=== PATIENT | female | born 1980 | race American Indian/Alaskan Native ===

== ENCOUNTER 2017-02-19 06:40 | Day surgery (SDC) | payer MEDICAID ==
[~2017-02-19 06:40] MED LIST: Dexamethasone 4 MG/ML SDV ONE; Lidocaine 1% 4 ML ONE; Midazolam 1 MG/ML 2 ML SDV ONE; Ondansetron 4 MG/2 ML SDV ONE; Propofol 200 MG/20 ML SDV ONE; ceFAZolin 1 GM Vial ONE; fentaNYL 250 MCG/5 ML SDV ONE
--- NOTE | 2017-02-19 06:45 | PCM.PREANE ---
Preanesthetic Assessment - Procedure Proposed Procedure: Right knee video arthroscopy with partial lateral menisectomy - Anesthesia/Transfusion/Family Hx Anesthesia History: Prior Anesthesia Without Reaction Family History of Anesthesia Reaction: No Transfusion History: No Prior Transfusion(s) Intubation History: Unknown - Review of Systems General: No Symptoms Pulmonary: Shortness of Breath, Other (Current everyday smoker) Cardiovascular: Dyspnea on Exertion, Other (Hypertension) Gastrointestinal: No symptoms (q ) Neurological: No Symptoms Other: Reports: Easy Bruising (Anemia, polymorphic light eruption (skin)), Depression - Physical Assessment NPO Status Date: 02/18/17 NPO Status Time: 21:00 Pulse: 70 O2 Sat by Pulse Oximetry: 97 Respiratory Rate: 16 Blood Pressure: 145/96 Temperature: 36.0 C Height: 1.55 m Weight: 72.575 kg ASA Class: 2 Mental Status: Alert & Oriented x3 Airway Class: Mallampati = 1 Dentition: Reports: Missing Tooth/Teeth (Both upper and lower) Thyro-Mental Finger Breadths: 3 Mouth Opening Finger Breadths: 3 ROM/Head Extension: Full Lungs: Clear to auscultation, Normal respiratory effort Cardiovascular: Regular Rate, Regular Rhythm, No Murmurs - Lab Values: Laboratory Last Values MRSA (PCR) Negative 02/17/17 16:24 - Allergies Allergies/Adverse Reactions: Allergies Allergy/AdvReac Type Severity Reaction Status Date / Time No Known Allergies Allergy Verified 02/18/17 15:49 - Blood Blood Available: No Product(s) Available: None - Acknowledgements Anesthesia Type Planned: General Anesthesia Pt an Appropriate Candidate for the Planned Anesthesia: Yes Alternatives and Risks of Anesthesia Discussed w Pt/Guardian: Yes Pt/Guardian Understands and Agrees with Anesthesia Plan: Yes PreAnesthesia Questionnaire Cardiovascular History: Reports: Hypertension, SOB on Exertion Respiratory History: 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: Musculoskeletal History: Reports: None Neurological History: Reports: None Psychiatric History: Reports: Depression, Suicidal Ideation Endocrine/Metabolic History: Reports: None Hematologic History: Reports: Anemia, Iron Deficiency Immunologic History: Reports: None Oncologic (Cancer) History: Reports: None Dermatologic History: Reports: Other (See Below) Other Dermatologic History: polymorpic light eruption - Past Surgical History Head Surgeries/Procedures: Reports: None HEENT Surgical History: Reports: Adenoidectomy, Tonsillectomy GI Surgical History: Reports: Appendectomy, Hernia Repair/Other Other GI Surgeries/Procedures: SMALL HEALED INCISION ABOVE UMBILICUS. PT STATES IS STILL VERY SORE Female Surgical History: Reports: Section, Tubal Ligation - SUBSTANCE USE Smoking Status *Q: Current Every Day Smoker Tobacco Use Within Last Twelve Months: Cigarettes Second Hand Smoke Exposure: Yes Days Per Week of Alcohol Use: 0 Recreational Drug Use History: Yes Recreational Drug Type: Reports: Other (see below) - HOME MEDS Home Medications: Home Meds Sertraline [Zoloft] 100 mg PO BEDTIME 01/02/15 [History] Buprenorphine HCl/Naloxone HCl [Buprenorphin-Naloxon 8-2 mg Sl] 1 tab SL BID [History] Fluocinonide [Lidex 0.05% Crm] 1 applic TOP BID 02/18/17 [History] Hydrocortisone [Hydrocortisone 2.5% Crm] 1 applic TOP BID 02/18/17 [History] Lisinopril 20 mg PO DAILY 02/18/17 [History] Triamcinolone Acetonide [Triamcinolone Acetonide 0.1% Crm] 1 applic TOP BID PRN 02/18/17 [History] - CURRENT (IN HOUSE) MEDS Current Meds: Current Medications Lactated Ringer's (Ringers, Lactated) 1,000 mls @ 125 mls/hr IV ASDIRECTED JAMES Lidocaine/Sodium Bicarbonate (Buffered Lidocaine 1% In Ns 8.4%) 0.25 ml IV ONETIME PRN PRN Reason: Prior to IV Start Sodium Chloride (Saline Flush) 10 ml FLUSH ASDIRECTED PRN PRN Reason: Keep Vein Open Discontinued Medications Cefazolin Sodium (Ancef) Confirm Administered Dose 2 gm .ROUTE .STK-MED ONE Stop: 02/19/17 06:26 Dexamethasone (Dexamethasone) Confirm Administered Dose 4 mg .ROUTE .STK-MED ONE Stop: 02/19/17 06:26 Fentanyl (Sublimaze) Confirm Administered Dose 250 mcg .ROUTE .STK-MED ONE Stop: 02/19/17 06:25 Lidocaine HCl (Xylocaine-Mpf 1%) Confirm Administered Dose 4 mls @ as directed .ROUTE .STK-MED ONE Stop: 02/19/17 06:26 Midazolam HCl (Versed 1 Mg/Ml) Confirm Administered Dose 2 mg .ROUTE .STK-MED ONE Stop: 02/19/17 06:25 Ondansetron HCl (Zofran) Confirm Administered Dose 4 mg .ROUTE .STK-MED ONE Stop: 02/19/17 06:26 Propofol (Diprivan 20 Ml) Confirm Administered Dose 200 mg .ROUTE .STK-MED ONE Stop: 02/19/17 06:25
[2017-02-19] MEDS ORDERED: Bupivacaine 0.25% 30 ML SDV ONE (06:52)
[2017-02-19] MEDS ORDERED: Lidocaine 1%/Sod Bicarbonate in NS 8.4% 1 ML Syringe IV PRN (07:00)
[2017-02-19] MEDS ORDERED: Sodium Chloride 0.9% 10 ML Syringe FLUSH PRN (07:00)
[2017-02-19] MEDS ORDERED: Lactated Ringers 1,000 ML IV SCH (07:00)
[2017-02-19] MEDS ORDERED: Ketamine 500 mg/10 ML MDV ONE (07:56)
[2017-02-19] MEDS ORDERED: Ketorolac 30 MG/ML SDV ONE (08:00)
[2017-02-19] MEDS: EPINEPHrine 1:1000 1 MG/ML 30 ML MDV ONE ×2 (08:09→08:15)
[2017-02-19] MEDS ORDERED: Triamcinolone Acetonide 40 MG/ML 1 ML MDV ONE (08:17)
[2017-02-19] MEDS ORDERED: Ondansetron 4 MG/2 ML SDV IVPUSH PRN (08:55)
[2017-02-19] MEDS ORDERED: Meperidine PF 50 MG/ML Syringe IM PRN (08:55)
[2017-02-19] MEDS ORDERED: Meperidine PF 50 MG/ML Syringe IVPUSH PRN (08:55)
--- NOTE | 2017-02-19 08:58 | PCM.POSTAN ---
POST ANESTHESIA ASSESSMENT - MENTAL STATUS Mental Status: somnolent (Able to orient) - VITAL SIGNS Pulse Rate: 74 SaO2: 97 Resp Rate: 13 Blood Pressure: 160/102 Temperature: 36.2 C - RESPIRATORY Respiratory Status: respiratory rate WNL, airway patent, O2 saturation stable - CARDIOVASCULAR CV Status: pulse rate WNL, blood pressure stable - GASTROINTESTINAL GI Status: no symptoms - PAIN Pain Score: 0 - POST OP HYDRATION Hydration Status: adequate & stable
[2017-02-19] MEDS: fentaNYL 100 MCG/2 ML SDV IVPUSH PRN ×3 (09:02→09:55)
[2017-02-19] MEDS: HYDROmorphone 0.5 MG/0.5 ML Syringe IVPUSH PRN ×2 (09:05→09:32)
[2017-02-19] MEDS ORDERED: hydrALAZINE 20 MG/ML SDV IVPUSH ONE (09:32)
[2017-02-19 10:56] VITALS: BP 124/71
--- NOTE | 2017-02-26 22:49 | PCM.OPNOTE ---
- General Post-Op/Procedure Note Date of Surgery/Procedure: 02/19/17 Operative Procedure(s): right knee video arthroscopy with partial lateral meniscectomy and later femoral condyle chondroplasty Pre Op Diagnosis: right knee lateral meniscus tear Post-Op Diagnosis: Same Anesthesia Technique: General LMA, Local Primary Surgeon: Wili Khoury Anesthesia Provider: Gonzales Hawkins Primary Montessori Teacher: Lili Gillespie Primary Montessori Teacher: Bharat Patricio EBL in mLs: 5 Complications: None Condition: Good
--- NOTE | 2017-02-26 23:34 | OR ---
DATE OF OPERATION: 02/19/2017 SURGEON: Wili Khoury MD OPERATION PERFORMED: Right knee video arthroscopy with partial lateral meniscectomy and lateral femoral condyle chondroplasty. PREOPERATIVE DIAGNOSIS: Right knee lateral meniscus tear. POSTOPERATIVE DIAGNOSIS: 1. 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 2. 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 ANESTHESIA: General LMA with local. ANESTHESIA PROVIDER: Gonzales Hawkins. ASSISTANTS: Lili Gillespie PA-C and Bharat Patricio MD. ESTIMATED BLOOD LOSS: 5. COMPLICATIONS: None. CONDITION: Stable. DESCRIPTION OF PROCEDURE: The patient was identified in the preop holding area. Proper site was marked and identified by the surgeon. The patient was taken back to the operating theater where after adequate anesthesia, the patient was placed supine. The left lower extremity was placed in a well leg dejesus. Right lower extremity was placed in a C-clamp dejesus after a nonsterile tourniquet was applied. Right lower extremity was then sterilely prepped and draped in the usual sterile fashion. OR time-out was performed. The patient received 2 g IV Ancef. At this time, the right lower extremity was exsanguinated and tourniquet was insufflated at 250 mmHg. Standard anterior lateral portal incision was made. The scope trocar was introduced. The patella showed no signs of chondromalacia over the trochlea. There were no loose or foreign bodies in the lateral gutter. At this time, attention was turned to medial compartment. Spinal needle was used for creation of anterior medial portal and cursory examination of the medial compartment showed no signs of chondromalacia. No meniscus tear. The ACL was found to be intact in the notch. Attention was turned to the lateral compartment. There was noted to be a diffuse tear of the lateral meniscus starting anteriorly working all the way back to the posterior third of the lateral meniscus. At this time, there was also noted to be a large 1.5 cm x 8 cm defect on the lateral femoral condyle with significant cartilage fraying and loose chondral pieces. At this time, a chondroplasty was performed of the lateral femoral condyle to get it back to a smooth border with no loose chondral flaps. A partial lateral meniscectomy was then carried out all the way from the anterior portion all the way to the posterior third and was found to be attached at this point, and a probe was used to make sure it was stable. At this time, excess saline was drained from the knee. A steroid injection was given to the patient. During this procedure, 3-0 nylon simple suture was used for closure of the skin. The patient had a sterile soft dressing applied and was sent to PACU in stable condition. MMODAL /[id number]
== END 2017-02-19 11:10 | disposition home or self-care (01) ==
LOC: JD.SDS 06:40
PROVIDERS: ATTEND Orthopaedic Surgery
PROC: 0SBD4ZZ Excision of Left Knee Joint, Percutaneous Endoscopic Approach (ICD-10-PCS; principal; 2017-02-19)
PROC: 0S5 Lower Joints, Destruction (ICD-10-PCS; 2017-02-19)
DX: S83.282A Other tear of lateral meniscus, current injury, left knee, initial encounter (principal); X58.XXXA Exposure to other specified factors, initial encounter; M94.262 Chondromalacia, left knee; I10 Essential (primary) hypertension; F17.200 Nicotine dependence, unspecified, uncomplicated; D50.9 Iron deficiency anemia, unspecified
CPT/HCPCS: 29881; 29999; 87641; J0171; J0360; J0690; J1100; J1170; J1885; J2250; J2405; J3010; J3301; J7120; 01400; J2704; J3490

== ENCOUNTER 2018-12-14 09:20 | Emergency (ER) | payer MEDICAID ==
[2018-12-14 09:30] VITALS: BP 148/94
[2018-12-14] MEDS ORDERED: Alum Hydrox/Mag Hydrox/Simeth 30 ML, Lidocaine 2% 15 ML PO STA ×2 (09:34)
--- NOTE | 2018-12-14 09:53 | EDM.PDOC ---
ED HPI GENERAL MEDICAL PROBLEM - General Chief Complaint: Gastrointestinal Problem Stated Complaint: HEARTBURN Time Seen by Provider: 12/14/18 09:34 Source of Information: Reports: Patient, RN Notes Reviewed History Limitations: Reports: No Limitations - History of Present Illness INITIAL COMMENTS - FREE TEXT/NARRATIVE: The patient states she has been experiencing heartburn since Thursday, 2018. She describes a bubble sensation in her epigastrium and a burning sensation behind her sternum, extending up to the mid chest, that is constant. The patient states that she has a history of intermittent GERD, formerly treated , but not for several years. She has not taken any [id number] treatments, including antacids, NSAIDs, or PPIs, to try to treat her current symptoms. The patient states that both of her knees were injected with steroids by Dr. Khoury this past 12/10/2018. She states that she is not on systemic steroids. The patient's PCP is Lida Wilkerson. Her Psychiatrist is Dr. Kayleigh Santos, in [place]. heartburn Pain Score (Numeric/FACES): 5 - Related Data Allergies Allergy/AdvReac Type Severity Reaction Status Date / Time No Known Allergies Allergy Verified 02/19/17 07:16 Home Meds: Home Meds Sertraline [Zoloft] 100 mg PO BEDTIME 01/02/15 [History] Buprenorphine HCl/Naloxone HCl [Buprenorphin-Naloxon 8-2 mg Sl] 1 tab SL BID [History] Fluocinonide [Lidex 0.05% Crm] 1 applic TOP BID 02/18/17 [History] Hydrocortisone [Hydrocortisone 2.5% Crm] 1 applic TOP BID 02/18/17 [History] Lisinopril 20 mg PO DAILY 02/18/17 [History] Triamcinolone Acetonide [Triamcinolone Acetonide 0.1% Crm] 1 applic TOP BID PRN 02/18/17 [History] Past Medical History Cardiovascular History: Reports: Hypertension Gastrointestinal History: Reports: GERD (untreated) 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: Psychiatric History: Reports: Addiction (methamphetamine, opioids), Depression, Suicidal Ideation Endocrine/Metabolic History: Reports: Obesity/BMI 30+ Hematologic History: Reports: Anemia, Iron Deficiency - Past Surgical History HEENT Surgical History: Reports: Adenoidectomy, Tonsillectomy GI Surgical History: Reports: Appendectomy, Hernia, Abdominal (ventral) Female Surgical History: Reports: Section (x 3), Tubal Ligation Musculoskeletal Surgical History: Reports: Arthroscopic Knee (right) Social & Family History - Family History Family Medical History: Noncontributory - Tobacco Use Smoking Status *Q: Current Every Day Smoker Years of Tobacco use: 21 Packs/Tins Daily: 0.5 Packs/Tins Daily Comment: Down from 1 ppd - Caffeine Use Caffeine Use: Reports: Coffee - Alcohol Use Alcohol Use History: No - Recreational Drug Use Recreational Drug Use: Yes Drug Use in Last 12 Months: No Recreational Drug Type: Reports: Methamphetamine (last smoked 2010), Other (see below) (Oxycodone, hydrocodone - last took 2010) - Living Situation & Occupation Living situation: Reports: (), with Family (2 daughters) Occupation: Unemployed ED ROS GENERAL - Review of Systems Review Of Systems: ROS reveals no pertinent complaints other than HPI. ED EXAM, GI/ABD - Physical Exam Exam: See Below Exam Limited By: No Limitations General Appearance: Alert, WD/WN, No Apparent Distress Eyes: Bilateral: Normal Appearance, EOMI Ears: Normal External Exam, Hearing Grossly Normal Nose: Normal Inspection Throat/Mouth: Normal Inspection, Normal Lips, Normal Voice, No Airway Compromise Head: Atraumatic, Normocephalic Neck: Normal Inspection, Full Range of Motion Respiratory/Chest: No Respiratory Distress, Lungs Clear, Normal Breath Sounds, No Accessory Muscle Use, Chest Non-Tender (sternal) Cardiovascular: Normal Peripheral Pulses, Regular Rate, Rhythm, No Gallop, No JVD, No Murmur, No Rub GI/Abdominal Exam: Normal Bowel Sounds, Soft, Non-Tender (including epigastrium) , No Organomegaly, No Distention, No Abnormal Bruit, No Mass, Other (Obese) (Female) Exam: Deferred Rectal (Female) Exam: Deferred Back Exam: Normal Inspection, Full Range of Motion, NT Extremities: Normal Inspection, Normal Range of Motion, Normal Capillary Refill Neurological: Alert, Oriented, Normal Cognition, No Motor/Sensory Deficits Psychiatric: Normal Affect Skin Exam: Warm, Dry, Intact, Normal Color, No Rash Course - Vital Signs Last Recorded V/S: Last Vital Signs Temp 37.1 C 12/14/18 09:26 Pulse 67 04/09/19 09:26 Resp 18 12/14/18 09:26 BP 148/94 H 12/14/18 09:26 Pulse Ox 98 12/14/18 09:26 - Orders/Labs/Meds Meds: Medications Discontinued Medications Generic Name Dose Route Start Last Admin Trade Name Evans PRN Reason Stop Dose Admin Al Hydroxide/Mg Hydroxide 30 0 ml 12/14/18 09:34 12/14/18 10:03 ml/ Lidocaine HCl 15 ml PO 12/14/18 09:35 45 ml ONETIME STA Administration Famotidine 20 mg 12/14/18 10:29 12/14/18 10:32 Pepcid PO 12/14/18 10:30 20 mg ONETIME ONE Administration - Re-Assessments/Exams Free Text/Narrative Re-Assessment/Exam: 12/14/18 09:53 The patient appears to be suffering from GERD. I have ordered a GI cocktail to see if that makes any difference. 12/14/18 10:30 The patient reported decreased burning following a GI cocktail. This is consistent with GERD. I am recommending that the patient start taking a H2 tito twice a day, and if that is effective, to decrease it to once a day. If taking a H2 tito twice a day is not effective, the patient may need to switch to a PPI, however, under those circumstances, I would recommend that the patient undergo an EGD. Departure - Departure Time of Disposition: 10:31 Disposition: Home, Self-Care 01 Condition: Good Clinical Impression: GERD (gastroesophageal reflux disease) - Discharge Information *PRESCRIPTION DRUG MONITORING PROGRAM REVIEWED*: Not Applicable *COPY OF PRESCRIPTION DRUG MONITORING REPORT IN PATIENT RADHA: Not Applicable Instructions: Food Choices for Gastroesophageal Reflux Disease, Adult Referrals: Lida Wilkerson PA-C [Primary Care Provider] - Forms: ED Department Discharge Additional Instructions: You were seen in the emergency room for a bubble-like sensation in your upper abdomen and a burning sensation in your mid chest. You had some relief following a GI cocktail, strongly indicating that your symptoms are due to GERD (acid reflux). You have been started on the antacid medicine famotidine (Pepcid). Famotidine is available [id number], and generics are just as good as the brand name. We recommend that you take one tablet approximately every 12 hours. If twice daily famotidine is effective in treating your heartburn, we recommend that you decreased your dosage to one tablet once a day. If that remains effective, we recommend that you stay on it. If you again develop heartburn while on once daily famotidine, go back to one tablet twice a day. If twice daily famotidine is ineffective in treating your heartburn symptoms, you may need to be placed on a stronger medication, however, under those circumstances we would recommend that you undergo an EGD (scope of your stomach) . Follow-up with your PCP, Lida Wilkerson, to make those arrangements. If any other problems, please do not hesitate to return to the ER.
[2018-12-14] MEDS ORDERED: Famotidine 20 MG Tab PO ONE (10:29)
== END 2018-12-14 10:42 | disposition home or self-care (01) ==
LOC: JD.ED 09:20
DX: K21.9 Gastro-esophageal reflux disease without esophagitis (principal); I10 Essential (primary) hypertension; F17.210 Nicotine dependence, cigarettes, uncomplicated; Z79.899 Other long term (current) drug therapy
CPT/HCPCS: 99283; A9270

== ENCOUNTER 2023-03-31 12:09 | Emergency (ER) | payer MEDICAID ==
[2023-03-31 12:20] VITALS: PULSE 72
[2023-03-31] MEDS ORDERED: Aspirin 81 MG Tab.Chew PO ONE (12:39)
[2023-03-31] MEDS ORDERED: Sodium Chloride 0.9% 10 ML Syringe FLUSH PRN (12:39)
[2023-03-31 12:55] LABS: BASOPHILS ABSOLUTE AUTO 0.01 K/mm3 (0.01-0.08); BASOPHILS PERCENT AUTO 0.2 % (0.1-1.2); EOSINOPHILS ABSOLUTE AUTO 0.18 K/mm3 (0.04-0.36); HEMATOCRIT 40.8 % (34.1-44.9); IMMATURE GRAN ABSOLUTE AUTO 0.01 K/mm3 (0.00-0.10); IMMATURE GRAN PERCENT AUTO 0.2 % (<=1.0); LYMPHOCYTES ABSOLUTE AUTO 1.18 K/mm3 (1.18-3.74); MEAN CORPUSCULAR HGB CONC 33.3 g/dl (32.2-35.5); MEAN PLATELET VOLUME 9.4 fl (9.4-12.3); MONOCYTES ABSOLUTE AUTO 0.52 K/mm3 (0.24-0.36); MONOCYTES PERCENT AUTO 8.8 % (4.7-12.5); NEUTROPHILS ABSOLUTE AUTO 4.01 K/mm3 (1.56-6.13); NEUTROPHILS PERCENT AUTO 67.8 % (34.0-71.1); PLATELET COUNT,PLT 320 K/mm3 (182-369); RED BLOOD CELL COUNT 4.85 M/mm3 (3.98-5.22); WHITE BLOOD CELL COUNT,WBC 5.91 K/mm3 (3.98-10.04)
[2023-03-31 12:57] LABS: HEMOGLOBIN 13.6 gm/dl (11.2-15.7); MEAN CORPUSCULAR VOLUME 84.1 fl (79.4-94.8)
[2023-03-31 13:31] LABS: A/G RATIO 0.9 (1-2); ALBUMIN 3.5 g/dl (3.4-5.0); ANION GAP 9.8 (5-15); BILIRUBIN TOTAL 0.3 mg/dL (0.2-1.0); BUN/CREATININE RATIO 17.1 (14-18); CALCIUM 9.2 mg/dL (8.5-10.1); CREATININE 0.7 mg/dL (0.55-1.02); EST CRCL DRUG DOSING (CG) 78.2 mL/min; POTASSIUM,K 3.8 mEq/L (3.5-5.1); PROTEIN TOTAL,TP 7.4 g/dl (6.4-8.2)
[2023-03-31 18:10] VITALS: BP 143/103
== END 2023-03-31 15:55 | disposition home or self-care (01) ==
LOC: JD.ED 12:09
DX: R07.89 Other chest pain (principal); I10 Essential (primary) hypertension; F17.210 Nicotine dependence, cigarettes, uncomplicated; E66.9 Obesity, unspecified; Z68.29 Body mass index [BMI] 29.0-29.9, adult; Z86.16 Personal history of COVID-19
CPT/HCPCS: 36415; 71045; 80053; 84484; 85025; 85379; 93005; 99285; A9270; 93010; 99284

== ENCOUNTER 2023-12-31 20:33 | Emergency (ER) | payer MEDICAID ==
[2023-12-31] MEDS: Sodium Chloride 0.9% 10 ML Syringe FLUSH PRN (21:03)
[2023-12-31 21:05] LABS: BASOPHILS PERCENT AUTO 0.3 % (0.0-1.0); EOSINOPHILS ABSOLUTE AUTO 0.3 K/mm3 (0.0-0.4); EOSINOPHILS PERCENT AUTO 2.9 % (0.0-6.0); HEMATOCRIT 35.8 % (37.0-47.0); HEMOGLOBIN 11.9 gm/dl (12.0-16.0); IMMATURE GRAN ABSOLUTE AUTO 0.02 K/mm3 (0.00-0.05); IMMATURE GRAN PERCENT AUTO 0.2 % (0.0-0.4); LYMPHOCYTES ABSOLUTE AUTO 2.3 K/mm3 (1.0-4.8); LYMPHOCYTES PERCENT AUTO 26.4 % (24.0-44.0); MEAN CORPUSCULAR HEMOGLOBIN 26.9 pg (28.0-32.0); MEAN CORPUSCULAR HGB CONC 33.2 g/dl (32.0-36.0); MEAN PLATELET VOLUME 8.8 fl (9.4-12.3); MONOCYTES ABSOLUTE AUTO 0.6 K/mm3 (0.0-0.8); MONOCYTES PERCENT AUTO 7.4 % (0.0-8.0); NEUTROPHILS ABSOLUTE AUTO 5.4 K/mm3 (1.8-7.7); NEUTROPHILS PERCENT AUTO 62.8 % (41.0-71.0); PLATELET COUNT,PLT 337 K/mm3 (150-400); RED BLOOD CELL COUNT 4.42 M/mm3 (4.10-5.30); WHITE BLOOD CELL COUNT,WBC 8.65 K/mm3 (3.9-11.3)
[2023-12-31 21:23] LABS: PROTHROMBIN TIME 9.8 SECONDS (9.7-12.0)
[2023-12-31 21:24] LABS: D-DIMER QUANTITATIVE 0.32 mg/L (0.19-0.50)
[2023-12-31 21:25] LABS: INR < 0.93; PTT,PARTIAL THROMBOPLSTIN TIME 26.5 SECONDS (21.7-31.4)
[2023-12-31 21:33] LABS: ALBUMIN 3.5 g/dl (3.4-5.0); ANION GAP 8.8 (5-15); BILIRUBIN TOTAL 0.3 mg/dL (0.2-1.0); BUN/CREATININE RATIO 11.3 (14-18); CALCIUM 8.9 mg/dL (8.5-10.1); CREATININE 0.8 mg/dL (0.55-1.02); EST CRCL DRUG DOSING (CG) 67.72 mL/min; MAGNESIUM 1.9 mg/dL (1.8-2.4); POTASSIUM,K 3.8 mEq/L (3.5-5.1); PROTEIN TOTAL,TP 7.1 g/dl (6.4-8.2)
[2023-12-31] MEDS: hydrALAZINE 20 MG/ML SDV IVPUSH ONE (21:37)
[2023-12-31] MEDS: amLODIPine 5 MG Tab PO ONE (22:23)
[2023-12-31 22:39] VITALS: PULSE 77
[2024-01-01 00:37] VITALS: BP 185/108
[2024-01-01] MEDS ORDERED: amLODIPine 10 MG Tab PO SCH (21:00)
== END 2024-01-01 00:27 | disposition home or self-care (01) ==
LOC: JD.ED 20:33
DX: I20.9 Angina pectoris, unspecified (principal); I10 Essential (primary) hypertension; K21.9 Gastro-esophageal reflux disease without esophagitis; E66.9 Obesity, unspecified; Z88.8 Allergy status to other drugs, medicaments and biological substances; Z86.16 Personal history of COVID-19; Z86.19 Personal history of other infectious and parasitic diseases; Z68.33 Body mass index [BMI] 33.0-33.9, adult
CPT/HCPCS: 36415; 71045; 71045-26; 80053; 83690; 83735; 84484; 85025; 85379; 85610; 85730; 93005; 96374; 99285-25; A9270-GY; J0360; J3490

== ENCOUNTER 2025-01-03 11:57 | Emergency (ER) | payer MEDICAID ==
[2025-01-03] MEDS: hydrALAZINE 20 MG/ML SDV IVPUSH ONE (12:39)
[2025-01-03] MEDS: amLODIPine 10 MG Tab PO SCH (12:47)
[2025-01-03 12:54] LABS: INR 0.97; PROTHROMBIN TIME 10.3 SECONDS (9.7-12.0)
[2025-01-03 12:55] LABS: PTT,PARTIAL THROMBOPLSTIN TIME 25.1 SECONDS (21.7-31.4)
[2025-01-03 13:04] LABS: BASOPHILS PERCENT AUTO 0.3 % (0.0-1.0); EOSINOPHILS ABSOLUTE AUTO 0.1 K/mm3 (0.0-0.4); EOSINOPHILS PERCENT AUTO 1.1 % (0.0-6.0); HEMOGLOBIN 11.5 gm/dl (12.0-16.0); IMMATURE GRAN ABSOLUTE AUTO 0.02 K/mm3 (0.00-0.05); IMMATURE GRAN PERCENT AUTO 0.3 % (0.0-0.4); LYMPHOCYTES ABSOLUTE AUTO 1.4 K/mm3 (1.0-4.8); LYMPHOCYTES PERCENT AUTO 21.2 % (24.0-44.0); MEAN CORPUSCULAR HGB CONC 31.9 g/dl (32.0-36.0); MEAN PLATELET VOLUME 8.9 fl (9.4-12.3); MONOCYTES ABSOLUTE AUTO 0.4 K/mm3 (0.0-0.8); MONOCYTES PERCENT AUTO 5.5 % (0.0-8.0); NEUTROPHILS ABSOLUTE AUTO 4.7 K/mm3 (1.8-7.7); NEUTROPHILS PERCENT AUTO 71.6 % (41.0-71.0); PLATELET COUNT,PLT 407 K/mm3 (150-400); WHITE BLOOD CELL COUNT,WBC 6.57 K/mm3 (3.9-11.3)
[2025-01-03 13:06] LABS: A/G RATIO 0.9 (1-2); ALBUMIN 3.3 g/dl (3.4-5.0); ANION GAP 9.6 (5-15); BILIRUBIN TOTAL 0.4 mg/dL (0.2-1.0); BUN/CREATININE RATIO 17.5 (14-18); CREATININE 0.8 mg/dL (0.55-1.02); EST CRCL DRUG DOSING (CG) 67.01 mL/min; MAGNESIUM 1.7 mg/dL (1.8-2.4); POTASSIUM,K 3.6 mEq/L (3.5-5.1); PROTEIN TOTAL,TP 7.1 g/dl (6.4-8.2)
[2025-01-03] MEDS: hydrALAZINE 20 MG/ML SDV ONE (15:28)
[2025-01-03] MEDS: amLODIPine 10 MG Tab ONE (15:28)
[2025-01-03] MEDS: Magnesium Oxide 400 MG Tab PO ONE (15:28)
[2025-01-03 16:01] VITALS: BP 148/84; PULSE 69
== END 2025-01-03 15:25 | disposition home or self-care (01) ==
LOC: JD.ED 11:57
DX: R07.89 Other chest pain (principal); I10 Essential (primary) hypertension; Z86.16 Personal history of COVID-19; Z90.49 Acquired absence of other specified parts of digestive tract; Z87.891 Personal history of nicotine dependence; Z79.899 Other long term (current) drug therapy
CPT/HCPCS: 36415; 71045; 80053; 83735; 83880; 84484; 85025; 85610; 85730; 93005; 96374; 99285; A9270; J0360; 93010; 99283